=== PATIENT | male | born 1960 | race Caucasian/White ===

== ENCOUNTER 2018-06-30 09:41 | Emergency (ER) | payer MEDICARE ==
[~2018-06-30] VITALS: Ht 175.3 cm; Wt 83.9 kg
[~2018-06-30 09:41] MED LIST: ALBU3IS INH; ALBU90I INH; ALBU90OI61 INH; AMLO10 PO; ARIP10 PO; ARIP20 PO; ASPI81CH PO; AZIT250 PO; BACL20 PO; BAYER CHEWABLE81 MG PO; CEPH500 PO; CLIN150 PO; CYCL10 PO; Cleocin HCl150 MG PO; Cleocin HCl300 MG PO; Coumadin5 MG PO; DIAZ10 PO; DIAZ5 PO; DICY20 PO; ESCI20 PO; FINA5 PO; FINASTERIDE1 MG PO; GUAI600T33 PO; HYDACE10B PO; HYDACE5 PO; HYDR1TAB94 PO; KETO10 PO; LIDO5TP TOP; LISI20 PO; LOSA50 PO; MEDICAL MARIJUANA INH; MELO7.5 PO; METO25ER PO; NAPR500 PO; NIAC500ER PO; Norco 5-325 Ta1 EACH PO; OXYC15ER PO; PENVK500 PO; PRED10 PO; PRED20 PO; PROCODE120 PO; PROM25 PO; Percocet 10-321 EACH PO; TIOT18 IH; TIOT18 INH; TRAM50 PO; Veetids 500500 MG PO; WARF6 PO; WARF7.5 PO; Xopenex; [UNRECOGNIZED DRUG - OTHER] MC
[2018-06-30] MEDS ORDERED: Lisinopril2.5 MG (10:27)
[2018-06-30] MEDS ORDERED: WARF7.5 PO (10:29)
[2018-06-30] MEDS ORDERED: ALBU90OI6 INH (10:29)
[2018-06-30] MEDS ORDERED: ALBU3IS (10:30)
[2018-06-30] MEDS ORDERED: Veetids 500500 MG PO (10:40)
== END 2018-06-30 11:08 | disposition home or self-care (01) ==
LOC: ER 09:41
DX: K08.89 Other specified disorders of teeth and supporting structures (principal); Z88.8 Allergy status to other drugs, medicaments and biological substances; Z91.02 Food additives allergy status; Z79.899 Other long term (current) drug therapy; Z79.82 Long term (current) use of aspirin; Z79.01 Long term (current) use of anticoagulants; J44.9 Chronic obstructive pulmonary disease, unspecified; I10 Essential (primary) hypertension; F17.200 Nicotine dependence, unspecified, uncomplicated
CPT/HCPCS: 99282

== ENCOUNTER 2018-11-16 12:31 | Emergency (ER) | payer MEDICARE ==
[~2018-11-16] VITALS: Ht 175.3 cm; Wt 83.9 kg
[~2018-11-16 12:31] MED LIST changes: +ALBU3IS; +ALBU90OI6 INH; +Lisinopril2.5 MG
[2018-11-16] MEDS ORDERED: Zocor20 MG PO (13:19)
[2018-11-16] MEDS ORDERED: FINA5 PO (13:20)
[2018-11-16 13:32] LABS: BASOPHILS ABSOLUTE AUTO 0.03 K/mm3 (0.00-0.23); BASOPHILS PERCENT AUTO 0 % (0-2); EOSINOPHILS ABSOLUTE AUTO 0.04 K/mm3 (0.00-0.68); EOSINOPHILS PERCENT AUTO 0 % (0-6); Hematocrit 42.8 % (37.0-53.0); Hemoglobin 14.3 g/dL (13.5-17.5); IMMATURE GRAN ABSOLUTE AUTO 0.03 K/mm3 (0.00-0.10); IMMATURE GRAN PERCENT AUTO 0 % (0-1); LYMPHOCYTES ABSOLUTE AUTO 0.96 K/mm3 (0.84-5.20); LYMPHOCYTES PERCENT AUTO 10 % (21-46); MONOCYTES ABSOLUTE AUTO 0.66 K/mm3 (0.16-1.47); MONOCYTES PERCENT AUTO 7 % (4-13); Mean Corpuscular HGB 30.4 pg (26.0-34.0); Mean Corpuscular HGB Conc 33.4 g/dL (31.5-36.5); Mean Corpuscular Volume 91 fL (80-100); Mean Platelet Volume 11.8 fL (9.1-12.4); NEUTROPHILS PERCENT AUTO 82 % (41-73); Platelet Count 221 K/mm3 (150-400); RDW Coefficient Variation 13.2 % (11.7-14.2); RDW Standard Deviation 44.4 fL (35.1-46.3); Red Blood Cell Count 4.71 M/mm3 (4.30-5.90); White Blood Cell Count 9.42 K/mm3 (4.00-11.30)
[2018-11-16 13:59] LABS: Alanine Aminotransfer (ALT/SGP 24 U/L (12-78); Albumin, Blood 3.8 g/dL (3.4-5.0); Albumin/Globulin Ratio 0.9 (0.8-1.8); Alk Phos 68 U/L (50-136); Anion Gap 10 mmol/L (6-16); Aspartate Aminotrans (AST/SGOT 24 U/L (12-37); Bilirubin, Total 1.2 mg/dL (0.1-1.0); Blood Urea Nitrogen 12 mg/dL (8-24); Bun/Creatinine Ratio 14.1 (12.0-20.0); CO2, Blood 26 mmol/L (21-32); Calcium, Blood 9.3 mg/dL (8.5-10.1); Chloride, Blood 99 mmol/L (98-108); Creatinine, Blood 0.85 mg/dL (0.60-1.20); Globulin, Blood 4.1 g/dL (2.2-4.0); Glomerular Filtration Rate >60 (60-); Glucose, Blood 164 mg/dL (70-99); Potassium, Blood 3.2 mmol/L (3.5-5.5); Sodium, Blood 135 mmol/L (136-145); Total Protein, Blood 7.9 g/dL (6.4-8.2); Troponin I <0.015 ng/mL (0.000-0.040)
[2018-11-16 14:22] LABS: Prothrombin Time Results 47.2 Sec (9.7-11.5)
[2018-11-16 16:05] LABS: International Normalized Ratio 5.17
[2018-11-16] MEDS ORDERED: Albuterol S5 MG/1 ML INH (16:17)
[2018-11-16] MEDS ORDERED: Prednisone20 MG PO (16:17)
== END 2018-11-16 16:24 | disposition home or self-care (01) ==
LOC: ER 12:31
PROVIDERS: Emergency Medicine; Physician Assistant
DX: J44.1 Chronic obstructive pulmonary disease with (acute) exacerbation (principal); R79.1 Abnormal coagulation profile; R11.2 Nausea with vomiting, unspecified; I10 Essential (primary) hypertension; Z88.8 Allergy status to other drugs, medicaments and biological substances; Z79.899 Other long term (current) drug therapy; Z79.01 Long term (current) use of anticoagulants; Z79.82 Long term (current) use of aspirin; F17.200 Nicotine dependence, unspecified, uncomplicated
CPT/HCPCS: 36415; 71046; 80053; 83735; 83880; 84484; 85025; 85610; 93005; 93010; 94640; 96374; 96375; 99285-25; J2405; J2930; J3010

== ENCOUNTER 2019-06-07 05:48 | Day surgery (SDC) | payer MEDICARE ==
[~2019-06-07] VITALS: Ht 175.3 cm; Wt 82.0 kg
[~2019-06-07 05:48] MED LIST changes: +Albuterol S5 MG/1 ML INH; +Prednisone20 MG PO; +SPIR25 PO; +TORSE20 PO; +Zocor20 MG PO
[2019-06-07] MEDS ORDERED: ENOX30I SC (06:22)
--- NOTE | 2019-06-07 10:24 | NUR ---
10CC AIR REMOVED FROM R WRIST TR BAND. -BLEEDING OR SWELLING.
--- NOTE | 2019-06-07 11:06 | NUR ---
PT AND FAMILY VERBALIZED UNDERSTANDING OF WRITTEN AND VERBAL D/C INST. R WRIST TR BAND REMOVED. PUNCTURE AREA CLEANED WITH NS. -BLEEDING OR SWELLING R WRIST AND AC AREA. CLOTH DOT DRNG PLACED OVER PUNCTURE AREA. R WRIST SPLINT REAPPLIED. IV REMOVED. PT TAKEN OUT OF THE HRT CENTER VIA W/C.
== END 2019-06-07 11:00 | disposition home or self-care (01) ==
LOC: MHTC 05:48
DX: I08.1 Rheumatic disorders of both mitral and tricuspid valves (principal); J44.9 Chronic obstructive pulmonary disease, unspecified; I11.9 Hypertensive heart disease without heart failure; I27.20 Pulmonary hypertension, unspecified; F17.210 Nicotine dependence, cigarettes, uncomplicated; Z79.82 Long term (current) use of aspirin; Z79.899 Other long term (current) drug therapy; Z79.01 Long term (current) use of anticoagulants; Z88.8 Allergy status to other drugs, medicaments and biological substances
CPT/HCPCS: 93456; 99152; C1769; C1894; J1644; J2250; J3010; J7030; Q9967

== ENCOUNTER 2019-11-15 14:10 | Emergency (ER) | payer MEDICARE ==
[~2019-11-15] VITALS: Ht 175.3 cm; Wt 80.3 kg
[~2019-11-15 14:10] MED LIST changes: +ASPIR 8181 MG PO; -BAYER CHEWABLE81 MG PO; +ENOX30I SC; +Penicillin V P500 MG PO
[2019-11-15] MEDS ORDERED: Veetids 500500 MG PO (14:55)
[2019-12-04] MEDS ORDERED: Amoxicillin500 MG PO (14:01)
== END 2019-11-15 14:55 | disposition home or self-care (01) ==
LOC: ER 14:10
DX: K04.7 Periapical abscess without sinus (principal); Z88.5 Allergy status to narcotic agent; Z79.01 Long term (current) use of anticoagulants; Z79.899 Other long term (current) drug therapy; I10 Essential (primary) hypertension; J44.9 Chronic obstructive pulmonary disease, unspecified; F17.210 Nicotine dependence, cigarettes, uncomplicated
CPT/HCPCS: 99282

== ENCOUNTER 2020-05-28 18:32 | Emergency (ER) | payer MEDICARE, OTHER ==
[~2020-05-28] VITALS: Ht 172.7 cm; Wt 83.9 kg
[~2020-05-28 18:32] MED LIST changes: +Amoxicillin500 MG PO
[2020-05-28] MEDS ORDERED: AMOCLA875 PO (20:12)
== END 2020-05-28 20:23 | disposition home or self-care (01) ==
LOC: ER 18:32
DX: K04.7 Periapical abscess without sinus (principal); I10 Essential (primary) hypertension; J44.9 Chronic obstructive pulmonary disease, unspecified; Z91.018 Allergy to other foods; Z88.8 Allergy status to other drugs, medicaments and biological substances; Z79.82 Long term (current) use of aspirin; Z79.01 Long term (current) use of anticoagulants; Z79.899 Other long term (current) drug therapy
CPT/HCPCS: 99282; A9270

== ENCOUNTER 2020-10-04 10:00 | Emergency (ER) | payer MEDICARE, OTHER ==
[~2020-10-04] VITALS: Ht 175.3 cm; Wt 90.7 kg
[~2020-10-04 10:00] MED LIST changes: +AMOCLA875 PO
[2020-10-04 12:11] LABS: BASOPHILS ABSOLUTE AUTO 0.05 K/mm3 (0.00-0.23); BASOPHILS PERCENT AUTO 1 % (0-2); EOSINOPHILS ABSOLUTE AUTO 0.17 K/mm3 (0.00-0.68); EOSINOPHILS PERCENT AUTO 3 % (0-6); Hematocrit 42.6 % (37.0-53.0); Hemoglobin 14.1 g/dL (13.5-17.5); IMMATURE GRAN ABSOLUTE AUTO 0.01 K/mm3 (0.00-0.10); IMMATURE GRAN PERCENT AUTO 0 % (0-1); LYMPHOCYTES ABSOLUTE AUTO 1.34 K/mm3 (0.84-5.20); LYMPHOCYTES PERCENT AUTO 21 % (21-46); MONOCYTES ABSOLUTE AUTO 0.39 K/mm3 (0.16-1.47); MONOCYTES PERCENT AUTO 6 % (4-13); Mean Corpuscular HGB 29.5 pg (26.0-34.0); Mean Corpuscular HGB Conc 33.1 g/dL (31.5-36.5); Mean Corpuscular Volume 89 fL (80-100); Mean Platelet Volume 11.3 fL (9.1-12.4); NEUTROPHILS ABSOLUTE AUTO 4.35 K/mm3 (1.96-9.15); NEUTROPHILS PERCENT AUTO 69 % (41-73); Platelet Count 218 K/mm3 (150-400); Red Blood Cell Count 4.78 M/mm3 (4.30-5.90); White Blood Cell Count 6.31 K/mm3 (4.00-11.30)
[2020-10-04 12:32] LABS: Alanine Aminotransfer (ALT/SGP 29 U/L (12-78); Albumin, Blood 3.9 g/dL (3.4-5.0); Alk Phos 74 U/L (50-136); Anion Gap 3 mmol/L (6-16); Aspartate Aminotrans (AST/SGOT 36 U/L (12-37); Bilirubin, Total 0.8 mg/dL (0.1-1.0); Blood Urea Nitrogen 9 mg/dL (8-24); Bun/Creatinine Ratio 8.3 (12.0-20.0); CO2, Blood 32 mmol/L (21-32); Calcium, Blood 8.5 mg/dL (8.5-10.1); Chloride, Blood 102 mmol/L (98-108); Creatinine, Blood 1.08 mg/dL (0.60-1.20); Glomerular Filtration Rate >60 (60-); Glucose, Blood 89 mg/dL (70-99); Potassium, Blood 4.2 mmol/L (3.5-5.5); Sodium, Blood 137 mmol/L (136-145); Total Protein, Blood 7.9 g/dL (6.4-8.2)
== END 2020-10-04 14:45 | disposition home or self-care (01) ==
LOC: ER 10:00
PROVIDERS: Physician Assistant
DX: J44.9 Chronic obstructive pulmonary disease, unspecified (principal); I10 Essential (primary) hypertension; Z88.8 Allergy status to other drugs, medicaments and biological substances; Z79.82 Long term (current) use of aspirin; Z87.891 Personal history of nicotine dependence
CPT/HCPCS: 36415; 71046; 80053; 85025; 99283-25

== ENCOUNTER 2021-02-23 17:19 | Emergency (ER) | payer MEDICARE, OTHER ==
[~2021-02-23] VITALS: Ht 172.7 cm; Wt 95.2 kg
[2021-02-23] MEDS ORDERED: Veetids 500500 MG PO (17:34)
== END 2021-02-23 17:35 | disposition home or self-care (01) ==
LOC: ER 17:19
DX: K04.7 Periapical abscess without sinus (principal); Z88.8 Allergy status to other drugs, medicaments and biological substances; Z79.01 Long term (current) use of anticoagulants; Z79.82 Long term (current) use of aspirin; Z79.899 Other long term (current) drug therapy; Z87.891 Personal history of nicotine dependence
CPT/HCPCS: 99282

== ENCOUNTER 2023-05-16 10:30 | Day surgery (SDC) | payer MEDICARE, OTHER ==
[~2023-05-16] VITALS: Ht 175.3 cm; Wt 86.0 kg
[~2023-05-16 10:30] MED LIST changes: +NEURONTIN300 MG PO; +TRELEGY ELLIPT1 EACH IH; +Ventolin/Prove6.7 GM INH
[2023-05-16] MEDS ORDERED: IPRAT-ALBUT 0.5-3 ML (10:49)
[2023-05-16] MEDS ORDERED: NS 1,000 ML IV ONE (11:07)
[2023-05-16 11:12] VITALS: BP 166/110
--- NOTE | 2023-05-16 12:04 | NUR ---
INR NOT THERAPEUTIC, CARDIOVERSION HELD. PT WILL FOLLOW UP WITH DR SAUER IN OFFICE. IV IN R AC D/C. CATHETER INTACT.
== END 2023-05-16 22:35 | disposition home or self-care (01) ==
LOC: MHTC 10:30
DX: R00.1 Bradycardia, unspecified (principal); I35.1 Nonrheumatic aortic (valve) insufficiency; I11.0 Hypertensive heart disease with heart failure; I50.42 Chronic combined systolic (congestive) and diastolic (congestive) heart failure; R94.31 Abnormal electrocardiogram [ECG] [EKG]; I25.10 Atherosclerotic heart disease of native coronary artery without angina pectoris; R06.02 Shortness of breath; I05.0 Rheumatic mitral stenosis; Z95.2 Presence of prosthetic heart valve; Z88.8 Allergy status to other drugs, medicaments and biological substances; J44.9 Chronic obstructive pulmonary disease, unspecified; F17.200 Nicotine dependence, unspecified, uncomplicated
CPT/HCPCS: J7030

== ENCOUNTER 2024-02-10 11:16 | Emergency (ER) | payer OTHER, MEDICARE ==
[~2024-02-10] VITALS: Ht 175.3 cm; Wt 88.5 kg
[~2024-02-10 11:16] MED LIST changes: +IPRAT-ALBUT 0.5-3 ML
[2024-02-10 11:24] VITALS: BP 162/98
== END 2024-02-10 12:35 | disposition home or self-care (01) ==
LOC: ER 11:16
DX: S16.1XXA Strain of muscle, fascia and tendon at neck level, initial encounter (principal); I10 Essential (primary) hypertension; J44.9 Chronic obstructive pulmonary disease, unspecified; V89.2XXA Person injured in unspecified motor-vehicle accident, traffic, initial encounter; Z79.51 Long term (current) use of inhaled steroids; Z79.82 Long term (current) use of aspirin; Z79.01 Long term (current) use of anticoagulants; Z79.899 Other long term (current) drug therapy; Z88.8 Allergy status to other drugs, medicaments and biological substances
CPT/HCPCS: 70450; 72125; 99284-25

== ENCOUNTER 2024-07-29 21:00 | Inpatient (IN) | payer MEDICARE, OTHER ==
[~2024-07-29] VITALS: Ht 175.3 cm; Wt 83.3 kg
[2024-07-29] MEDS ORDERED: Albuterol 2.5 MG/3 ML VIAL INH SCH (21:15)
[2024-07-29 21:26] LABS: BASOPHILS ABSOLUTE AUTO 0.02 K/mm3 (0.00-0.23); BASOPHILS PERCENT AUTO 0 % (0-2); EOSINOPHILS ABSOLUTE AUTO 0.07 K/mm3 (0.00-0.68); EOSINOPHILS PERCENT AUTO 1 % (0-6); Hematocrit 36.6 % (37.0-53.0); Hemoglobin 12.4 g/dL (13.5-17.5); IMMATURE GRAN ABSOLUTE AUTO 0.01 K/mm3 (0.00-0.10); IMMATURE GRAN PERCENT AUTO 0 % (0-1); LYMPHOCYTES ABSOLUTE AUTO 0.89 K/mm3 (0.84-5.20); LYMPHOCYTES PERCENT AUTO 12 % (21-46); MONOCYTES ABSOLUTE AUTO 0.51 K/mm3 (0.16-1.47); MONOCYTES PERCENT AUTO 7 % (4-13); Mean Corpuscular HGB 31.8 pg (26.0-34.0); Mean Corpuscular HGB Conc 33.9 g/dL (31.5-36.5); Mean Corpuscular Volume 94 fL (80-100); Mean Platelet Volume 10.8 fL (9.1-12.4); NEUTROPHILS ABSOLUTE AUTO 5.79 K/mm3 (1.96-9.15); NEUTROPHILS PERCENT AUTO 79 % (41-73); Platelet Count 184 K/mm3 (150-400); White Blood Cell Count 7.29 K/mm3 (4.00-11.30)
[2024-07-29 21:47] LABS: Albumin/Globulin Ratio 1.4 (0.8-1.8); Bilirubin, Total 0.8 mg/dL (0.1-1.0); Bun/Creatinine Ratio 6.7 (12.0-20.0); Calcium, Blood 8.5 mg/dL (8.5-10.1); Creatinine, Blood 1.04 mg/dL (0.60-1.20); Globulin, Blood 2.9 g/dL (2.2-4.0); Potassium, Blood 3.3 mmol/L (3.5-5.5); Total Protein, Blood 6.9 g/dL (6.4-8.2)
[2024-07-29 22:28] LABS: Magnesium, Blood 1.9 mg/dL (1.6-2.4)
[2024-07-29 23:18] LABS: Influenza A, PCR NEGATIVE (NEGATIVE); Influenza B, PCR NEGATIVE (NEGATIVE); Resp Syncytial Virus, PCR NEGATIVE (NEGATIVE); SARS-Cov-2 (COVID-19) PCR, MMC NEGATIVE (NEGATIVE)
[2024-07-30] VITALS (17 sets, daily range): BP systolic 129–157; BP diastolic 74–101
[2024-07-30] MEDS ORDERED: MethylPREDNISolone Sod Succ 125 MG Vial IV ONE ×3 (01:05→23:55)
[2024-07-30] MEDS ORDERED: NS 1,000 ML IV SCH (01:10)
[2024-07-30] MEDS ORDERED: FLU VACC TS2024-25(6MOS UP)/PF 45 MCG/0.5 ML SYRINGE IM ONE (01:10)
[2024-07-30] MEDS ORDERED: Ondansetron 4 MG TAB PO PRN (01:10)
[2024-07-30] MEDS ORDERED: Lisinopril2.5 MG PO (01:13)
[2024-07-30] MEDS ORDERED: WARF5 PO (01:14)
[2024-07-30] MEDS ORDERED: Ipratropium/Albuterol SulF 2.5-0.5MG/3 ML Amp INH SCH (01:15)
[2024-07-30] MEDS ORDERED: Albuterol 2.5 MG/3 ML VIAL INH PRN (01:15)
[2024-07-30 04:57] LABS: BASOPHILS ABSOLUTE AUTO 0.01 K/mm3 (0.00-0.23); BASOPHILS PERCENT AUTO 0 % (0-2); EOSINOPHILS PERCENT AUTO 0 % (0-6); Hematocrit 36.7 % (37.0-53.0); IMMATURE GRAN ABSOLUTE AUTO 0.02 K/mm3 (0.00-0.10); IMMATURE GRAN PERCENT AUTO 0 % (0-1); LYMPHOCYTES PERCENT AUTO 4 % (21-46); MONOCYTES ABSOLUTE AUTO 0.08 K/mm3 (0.16-1.47); MONOCYTES PERCENT AUTO 1 % (4-13); Mean Corpuscular HGB Conc 32.7 g/dL (31.5-36.5); Mean Corpuscular Volume 95 fL (80-100); Mean Platelet Volume 11.3 fL (9.1-12.4); NEUTROPHILS ABSOLUTE AUTO 6.43 K/mm3 (1.96-9.15); NEUTROPHILS PERCENT AUTO 94 % (41-73); Platelet Count 189 K/mm3 (150-400); RDW Coefficient Variation 14.1 % (11.7-14.2); RDW Standard Deviation 49.1 fL (35.1-46.3); Red Blood Cell Count 3.87 M/mm3 (4.30-5.90); White Blood Cell Count 6.84 K/mm3 (4.00-11.30)
[2024-07-30 05:12] LABS: International Normalized Ratio 2.59; Prothrombin Time Results 25.8 Sec (9.7-11.5)
[2024-07-30 05:22] LABS: Albumin, Blood 4.1 g/dL (3.4-5.0); Albumin/Globulin Ratio 1.4 (0.8-1.8); Bilirubin, Total 0.9 mg/dL (0.1-1.0); Bun/Creatinine Ratio 7.8 (12.0-20.0); Calcium, Blood 8.8 mg/dL (8.5-10.1); Creatinine, Blood 0.9 mg/dL (0.60-1.20); Globulin, Blood 2.9 g/dL (2.2-4.0); Potassium, Blood 3.5 mmol/L (3.5-5.5)
[2024-07-30] MEDS ORDERED: Diltiazem HCl 5 MG / ML 5ML Vial IV ONE (07:40)
--- NOTE | 2024-07-30 07:49 | NUR ---
"Spiritual Care | Rapid Response Support Pt. is being attended to by RR Team. This police clerk is assigned to contact Spouse and request her to come to the hospital. Phone call was made. Spouse will need to find a ride but will come in as soon as she can. Reported call to nurse supervisor testing."
[2024-07-30] MEDS ORDERED: MethylPREDNISolone Sod Succ 125 MG Vial IV SCH (08:00)
[2024-07-30 08:10] LABS: Base Excess Venous 3.4 mmol/L; Bicarbonate Venous 26.3 mmol/L (24.0-30.0)
[2024-07-30 08:11] LABS: PCO2 Venous 57.3 mmHg (38-42); pH Blood Venous 7.32 (7.34-7.37)
[2024-07-30 08:14] LABS: BASOPHILS PERCENT AUTO 0 % (0-2); EOSINOPHILS PERCENT AUTO 0 % (0-6); Hematocrit 38.7 % (37.0-53.0); Hemoglobin 12.8 g/dL (13.5-17.5); IMMATURE GRAN ABSOLUTE AUTO 0.02 K/mm3 (0.00-0.10); IMMATURE GRAN PERCENT AUTO 0 % (0-1); LYMPHOCYTES ABSOLUTE AUTO 0.32 K/mm3 (0.84-5.20); LYMPHOCYTES PERCENT AUTO 6 % (21-46); MONOCYTES ABSOLUTE AUTO 0.05 K/mm3 (0.16-1.47); MONOCYTES PERCENT AUTO 1 % (4-13); Mean Corpuscular HGB 31.4 pg (26.0-34.0); Mean Corpuscular HGB Conc 33.1 g/dL (31.5-36.5); Mean Corpuscular Volume 95 fL (80-100); NEUTROPHILS ABSOLUTE AUTO 5.21 K/mm3 (1.96-9.15); NEUTROPHILS PERCENT AUTO 93 % (41-73); Platelet Count 189 K/mm3 (150-400); RDW Standard Deviation 48.7 fL (35.1-46.3); Red Blood Cell Count 4.07 M/mm3 (4.30-5.90)
--- NOTE | 2024-07-30 08:15 | NUR ---
Ness of care: Received patient from the floor as a rapid response PCU overflow. He is alert & oriented, states his breathing is back to normal. He has wheezes throughout. Weaned from 5L NC to 2L NC. In controlled Afib in the 90s. SBP 140s. PIV x2 in place. Will continue to monitor.
[2024-07-30 08:35] LABS: Albumin, Blood 4.2 g/dL (3.4-5.0); Albumin/Globulin Ratio 1.3 (0.8-1.8); Bilirubin, Total 0.9 mg/dL (0.1-1.0); Bun/Creatinine Ratio 7.7 (12.0-20.0); Calcium, Blood 8.7 mg/dL (8.5-10.1); Creatinine, Blood 0.9 mg/dL (0.60-1.20); Globulin, Blood 3.2 g/dL (2.2-4.0); Potassium, Blood 3.9 mmol/L (3.5-5.5); Total Protein, Blood 7.4 g/dL (6.4-8.2)
[2024-07-30] MEDS ORDERED: Metoprolol Tartrate 25 MG Tab PO SCH (09:00)
[2024-07-30] MEDS ORDERED: dilTIAZem HCL 60 MG CAP.SR PO SCH (09:00)
[2024-07-30] MEDS ORDERED: Aspirin 81 MG TabEC PO SCH (09:00)
[2024-07-30] MEDS ORDERED: Lisinopril 10 MG Tab PO SCH (09:00)
[2024-07-30] MEDS ORDERED: Citalopram Hydrobromide 20 MG Tab PO SCH (09:00)
[2024-07-30] MEDS ORDERED: ARIPiprazole 10 MG Tab PO SCH (09:00)
--- NOTE | 2024-07-30 09:53 | NUR ---
Pt. is settled in the ICU when I come to bedside. Pt. welcomes my visit. Spouse is at bedside. After intorductions are made, I facilitate a short life review. Bot Pt. and spouse verbalize gratitude for the support they received during this morning's RR. Considered matters of hugh and belief. Pt. welcomed prayer. Prayed for the Pt. Both Pt. and spouse verbalized gratitude for the spiritual care visit and welcomed me to return.
[2024-07-30] MEDS ORDERED: Chlorphiramine/Hydrod Polistir 5 ML UDC PO PRN (12:25)
[2024-07-30] MEDS ORDERED: Warfarin Sodium 5 MG Tab PO SCH (18:00)
[2024-07-30] MEDS ORDERED: Warfarin Sodium 2.5 MG Tab PO SCH (18:00)
--- NOTE | 2024-07-30 18:20 | NUR ---
End of shift summary: Resting peacefully in bed with no complaints. Alert & oriented. 2L NC with oxygen saturations in mid 90s. Continues with wheezes throughout but does not complain of SOB. Congested, nonproductive cough. SBP 130-140. NSR in 80s. Taking PO & voiding in urinal. PIV x2. Awaiting PCU bed.
--- NOTE | 2024-07-30 19:48 | NUR ---
ASSUMPTION OF CARE/TRANSFER OF CARE REPORT RECEIVED AND CARE OF PT ASSUMED. PT SITTING UP IN BED WATCHING TV WITH FRIEND/ IN ROOM. NO APPARENT DISTRESS. SINUS RHYTHM 85 WITH ELEVATED BP 140-160 SBP. 95% SATURATION ON 2LNC. NO CHEST PAIN/PRESSURE, SOB, AB PAIN, N/V. PT HAS CALL LIGHT
[2024-07-30] MEDS ORDERED: Atorvastatin 10 MG Tab PO SCH (21:00)
[2024-07-31 04:19] LABS: BASOPHILS ABSOLUTE AUTO 0.01 K/mm3 (0.00-0.23); BASOPHILS PERCENT AUTO 0 % (0-2); EOSINOPHILS PERCENT AUTO 0 % (0-6); Hematocrit 35.4 % (37.0-53.0); Hemoglobin 11.5 g/dL (13.5-17.5); IMMATURE GRAN ABSOLUTE AUTO 0.06 K/mm3 (0.00-0.10); IMMATURE GRAN PERCENT AUTO 1 % (0-1); LYMPHOCYTES ABSOLUTE AUTO 0.43 K/mm3 (0.84-5.20); LYMPHOCYTES PERCENT AUTO 4 % (21-46); MONOCYTES ABSOLUTE AUTO 0.18 K/mm3 (0.16-1.47); MONOCYTES PERCENT AUTO 2 % (4-13); Mean Corpuscular HGB 31.3 pg (26.0-34.0); Mean Corpuscular HGB Conc 32.5 g/dL (31.5-36.5); Mean Corpuscular Volume 97 fL (80-100); Mean Platelet Volume 11.9 fL (9.1-12.4); NEUTROPHILS ABSOLUTE AUTO 10.74 K/mm3 (1.96-9.15); NEUTROPHILS PERCENT AUTO 94 % (41-73); Platelet Count 171 K/mm3 (150-400); RDW Coefficient Variation 14.1 % (11.7-14.2); RDW Standard Deviation 49.8 fL (35.1-46.3); Red Blood Cell Count 3.67 M/mm3 (4.30-5.90); White Blood Cell Count 11.42 K/mm3 (4.00-11.30)
[2024-07-31 04:30] VITALS: BP 114/76
[2024-07-31 04:32] LABS: Calcium, Blood 8.4 mg/dL (8.5-10.1); Creatinine, Blood 0.93 mg/dL (0.60-1.20); Potassium, Blood 3.8 mmol/L (3.5-5.5)
[2024-07-31 04:36] LABS: International Normalized Ratio 2.75; Prothrombin Time Results 27.3 Sec (9.7-11.5)
--- NOTE | 2024-07-31 06:02 | NUR ---
SHIFT SUMMARY PT TRANSFERRED FROM ICU NEURO: WNL CARDIAC: PT IS FLIPPING FROM AFIB TO NORMAL SINUS. LUNGS: WHEEZY THROUGHOUT. ON 0.5L NC
--- NOTE | 2024-07-31 06:35 | NUR ---
PT WENT INTO BIGEMINY RHYTHM, WITH COMPLAINTS OF SOB AND MOUTH BREATHING. SPO2 93% AND ABOVE. WHEEZES HEARD THROUGHOUT LEFT LOBE, OXIMASK PLACED, RT NOTIFIED. HR UP TO 130'S DURING EPISODE. PT INSTRUCTED TO PRACTICE SLOW DEEP BREATHS.
[2024-07-31 07:50] VITALS: BP 125/89
[2024-07-31] MEDS ORDERED: Potassium Chloride 20 MEQ TabCR PO ONE (08:00)
[2024-07-31] MEDS ORDERED: Furosemide 10 MG / ML 2ML Vial IV SCH (09:00)
[2024-07-31] MEDS ORDERED: Diltiazem HCl 180 MG Cap.CD PO SCH (09:00)
[2024-07-31] MEDS ORDERED: Lisinopril 5 MG Tab PO SCH (09:00)
[2024-07-31 11:34] VITALS: BP 123/83
[2024-07-31 15:28] VITALS: BP 116/78
--- NOTE | 2024-07-31 18:34 | NUR ---
SHIFT SUMMARY PT A&Ox4, CALLS AND COMMUNICATES NEEDS APPROPRIATELY. BP STABLE, SINUS 80's, DENIES CP/PRESSURE. SpO2> 92% RA-1L VIA NC, DENIES SOB. 1 ASSIST IN ROOM. CONTINENT OF URINE, USES URINAL IND AT BEDSIDE. NO C/O PAIN. INCREASED WOB/SOB DURING MOMENTS OF ANXIETY, BREATHING TREATMENTS HELP SYMPTOMS. NO OTHER EVENTS, WILL REPORT TO ONCOMING RN.
[2024-07-31 19:43] VITALS: BP 131/80
[2024-07-31 23:19] VITALS: BP 122/83
[2024-08-01 03:20] VITALS: BP 139/89
[2024-08-01 03:31] LABS: BASOPHILS ABSOLUTE AUTO 0.01 K/mm3 (0.00-0.23); BASOPHILS PERCENT AUTO 0 % (0-2); EOSINOPHILS ABSOLUTE AUTO 0.03 K/mm3 (0.00-0.68); EOSINOPHILS PERCENT AUTO 0 % (0-6); Hemoglobin 12.1 g/dL (13.5-17.5); IMMATURE GRAN ABSOLUTE AUTO 0.06 K/mm3 (0.00-0.10); IMMATURE GRAN PERCENT AUTO 1 % (0-1); LYMPHOCYTES ABSOLUTE AUTO 0.45 K/mm3 (0.84-5.20); LYMPHOCYTES PERCENT AUTO 4 % (21-46); MONOCYTES PERCENT AUTO 2 % (4-13); Mean Corpuscular HGB 32.2 pg (26.0-34.0); Mean Corpuscular HGB Conc 33.6 g/dL (31.5-36.5); Mean Corpuscular Volume 96 fL (80-100); Mean Platelet Volume 11.5 fL (9.1-12.4); NEUTROPHILS ABSOLUTE AUTO 12.19 K/mm3 (1.96-9.15); NEUTROPHILS PERCENT AUTO 94 % (41-73); Platelet Count 173 K/mm3 (150-400); RDW Coefficient Variation 14.4 % (11.7-14.2); RDW Standard Deviation 50.3 fL (35.1-46.3); Red Blood Cell Count 3.76 M/mm3 (4.30-5.90); White Blood Cell Count 12.94 K/mm3 (4.00-11.30)
[2024-08-01 03:47] LABS: International Normalized Ratio 2.8; Prothrombin Time Results 27.8 Sec (9.7-11.5)
[2024-08-01 03:53] LABS: Bun/Creatinine Ratio 22.4 (12.0-20.0); Calcium, Blood 8.6 mg/dL (8.5-10.1); Creatinine, Blood 0.94 mg/dL (0.60-1.20); Potassium, Blood 4.1 mmol/L (3.5-5.5)
[2024-08-01 07:38] VITALS: BP 122/77
[2024-08-01] MEDS ORDERED: Bumetanide 1 MG Tab PO ONE (09:10)
[2024-08-01 11:50] VITALS: BP 129/70
[2024-08-01] MEDS ORDERED: DILT120 PO (13:50)
[2024-08-01] MEDS ORDERED: BUME1 PO (13:51)
[2024-08-01] MEDS ORDERED: PRED20 PO (13:54)
[2024-08-01] MEDS ORDERED: POTA10T PO (13:55)
[2024-08-01 15:04] VITALS: BP 129/81
--- NOTE | 2024-08-01 16:15 | NUR ---
DISCHARGE SUMMARY PT A&Ox4, CALLS AND COMMUNICATES NEEDS APPROPRIATELY. BP STABLE, AFLUTTER 60-70's, DENIES CP/PRESSURE. SpO2> 92% RA-1L VIA NC AT REST 3L WITH ACTIVITY, DENIES SOB. 1 ASSIST IN ROOM. CONTINENT OF URINE, USES URINAL IND AT BEDSIDE. NO C/O PAIN. DISCHARGE INSTRUCTIONS PROVIDED. ALL PT BELONGINGS GATHERED AND SENT WITH FAMILY. PT TAKEN OUT VIA WHEELCHAIR BY CLINICAL STAFF.
[2024-08-01] MEDS ORDERED: Warfarin Sodium 2.5 MG Tab PO SCH (18:00)
== END 2024-08-01 16:00 | disposition home or self-care (01) | DRG 189 ==
LOC: ER 21:00 → ERHOLD 07-30 01:08 → ICUE 07-30 01:08 → MEDS 07-30 01:08 → ICUE 07-30 08:26 → PCU 07-30 20:44
PROVIDERS: Emergency Medicine; Internal Medicine; Student in an Organized Health Care Education/Training Program; ADMIT Student in an Organized Health Care Education/Training Program
DX: J96.01 Acute respiratory failure with hypoxia (principal); J44.1 Chronic obstructive pulmonary disease with (acute) exacerbation; I48.92 Unspecified atrial flutter; I44.7 Left bundle-branch block, unspecified; I10 Essential (primary) hypertension; M25.552 Pain in left hip; G89.29 Other chronic pain; I48.0 Paroxysmal atrial fibrillation; F32.9 Major depressive disorder, single episode, unspecified; E78.5 Hyperlipidemia, unspecified; Z95.2 Presence of prosthetic heart valve; Z90.49 Acquired absence of other specified parts of digestive tract; Z98.890 Other specified postprocedural states; Z88.8 Allergy status to other drugs, medicaments and biological substances; Z79.82 Long term (current) use of aspirin; Z79.899 Other long term (current) drug therapy; Z79.01 Long term (current) use of anticoagulants
CPT/HCPCS: 0241U; 36415; 71046; 80048; 80053; 82330; 82803; 83735; 83880; 84145; 84443; 84484; 85025; 85379; 85610; 86140; 90656; 93005; 93010; 93306; 94640; 94664; 94761; 94762; 97116; 97161; 99285-25; A9270; G0008; J1940; J2919